=== PATIENT | female | born 1985 | race Caucasian/White ===

== ENCOUNTER 2018-05-16 08:35 | Emergency (ER) | payer SELFPAY ==
--- NOTE | 2018-05-16 09:03 | ED Physician Documentation ---
General Adult - HISTORIAN Historian: patient - HPI Stated Complaint: ear ringing Chief Complaint: General Adult Onset: days ago Timing: still present Severity: moderate Further Comments: yes (Pt is a 33 yo female who has had at least three episodes of loud, high pitched ringing in her L ear, together with sudden dizziness, over the past week. No headache. Pt says she woke up this am "burning," but was unable to check temperature. Pt is afebrile on presentation.) - ROS CONST: other (dizziness) EYES/ENT: other (L ear ringing) CVS/RESP: none GI/: none MS/SKIN/LYMPH: none NEURO/PSYCH: other (dizziness & L ear ringing) - PAST HX Past History: none Other History: none Allergies/Adverse Reactions: Allergies Allergy/AdvReac Type Severity Reaction Status Date / Time meperidine [From Demerol] Allergy Verified 05/16/18 08:59 Home Medications: Ambulatory Orders Medication Instructions Recorded Amoxicillin 500 mg PO Q8H #30 capsule 05/16/18 - SOCIAL HX Smoking History: cigarettes - FAMILY HX Family History: No - VITAL SIGNS Vital Signs: Vital Signs Temp Pulse Resp BP Pulse Ox 97.4 F L 87 14 129/87 98 05/16/18 08:47 05/16/18 08:47 05/16/18 08:47 05/16/18 08:47 05/16/18 08:47 - REVIEWED ASSESSMENTS Nursing Assessment Reviewed: Yes Vitals Reviewed: Yes Progress - Progress Progress: CT head w/o contrast: Ventricles and sulci are appropriate for patient age. Cerebrocerebellar parenchyma demonstrates normal attenuation. No evidence for parenchymal hemorrhage. No evidence for mass or mass effect. No midline shift. No extra axial fluid collections. Partial visualization of the paranasal sinuses, mastoid air cells, orbits, skull and scalp without gross irregularity. Auditory canals without gross abnormality given exam sensitivity. Impression: No acute parenchymal process. No hemorrhage. NS 1 L IVF in ER Pt without sx at this time. ? ear infection Rx Amoxicillin 500 mg. Take one every 8 hours for 10 days. If symptoms persist follow up with Ear, Nose, & Throat doctor. Thyroid test (TSH) pending for thyroid fullness on exam. Call primary care provider for results of test. ED Results Lab/Radiology - Orders Orders: ED Orders Category Date Time Status CT BRAIN W/O CONTRAST Stat Exams 05/16/18 Ordered CBC/PLATELET/DIFF Routine Lab 05/16/18 Ordered CMP Routine Lab 05/16/18 Ordered URINALYSIS Routine Lab 05/16/18 Ordered URINE HCG [URINE HCG] Stat Lab 05/16/18 Uncollected General Adult Physical Exam - PHYSICAL EXAM GENERAL APPEARANCE: mild distress EENT: pharynx normal, TM's nml NECK: supple, other (thyroid fullness) RESPIRATORY: no resp distress, chest non-tender, breath sounds normal CVS: reg rate & rhythm, heart sounds normal ABDOMEN: soft, no organomegaly, normal bowel sounds BACK: normal inspection, no CVA tenderness SKIN: warm/dry, normal color EXTREMITIES: non-tender, normal range of motion, no evidence of injury NEURO: oriented X3, CN's nml as tested, motor nml, sensation nml Discharge Clincal Impression: dizziness w L ear ringing, ? ear infection Prescriptions: Amoxicillin 500 mg PO Q8H #30 capsule Referrals: Primary Doctor,No [Primary Care Provider] - Condition: Stable Disposition: 01 HOME, SELF-CARE Decision to Admit: NO Decision Time: 11:08
[2018-05-16] MEDS ORDERED: 0.9 % SODIUM CHLORIDE 1,000 ML IV ONE (09:32)
[2018-05-16 10:24] LABS: eGFR (Non-African) > 60
[2018-05-16 11:01] LABS: BASO % 0.4 % (0.0-1.5); EOS % 0.7 % (0.0-6.8); LYMPH ABS # 2.59 thou/uL (0.60-4.00); MCV 84.8 fL (80.0-100.0); MONOCYTE % 4.8 % (0.0-11.0); MONOCYTE ABS # 0.77 thou/uL (0.00-0.90); PLATELET COUNT 344 thou/uL (130-400)
[2018-05-16 11:23] VITALS: BP 125/85
--- NOTE | 2018-05-16 13:06 | Diagnostic Imaging Report ---
ERIC HARTMANN [facility] [id number] [facility] [address] [place], [place]. [address] Report Submission Date: May 16, 2018 9:39:56 AM CDT Patient Study Name: CARLIN HEATH Date: May 16, 2018 9:26:51 AM CDT Modality Type: CT\SR Gender: F Description: CT BRAIN W/O CONTRAST : 87 Institution: [facility] Physician: ERIC HARTMANN Examination: CT head without contrast History: RT EAR RINGING AND DIZZINESS X1 DAY (Hx) Comparison exam: None available Technique: Noncontrast head CT protocol. Findings: Ventricles and sulci are appropriate for patient age. Cerebrocerebellar parenchyma demonstrates normal attenuation. No evidence for parenchymal hemorrhage. No evidence for mass or mass effect. No midline shift. No extra axial fluid collections. Partial visualization of the paranasal sinuses, mastoid air cells, orbits, skull and scalp without gross irregularity. Auditory canals without gross abnormality given exam sensitivity. Impression: No acute parenchymal process. No hemorrhage. Electronically signed on May 16, 2018 9:39:56 AM CDT by: Casey CELIS
[2018-05-16 16:17] LABS: OCCULT BLOOD,URINE NEGATIVE (NEGATIVE); URINE HCG NEGATIVE (NEGATIVE); UROBILINOGEN URINE 0.2 Eu (0.2-1.0)
== END 2018-05-16 11:22 | disposition home or self-care (01) ==
LOC: ED 08:35
DX: R42 Dizziness and giddiness (principal); H93.12 Tinnitus, left ear
CPT/HCPCS: 70450; 80053; 81002; 81025; 84443; 85025; J7030; 96365; 96366; 99284; S1016